=== PATIENT | male | born 1955 ===

== ENCOUNTER 2017-05-19 12:30 | Emergency (ER) | payer OTHER ==
[2017-05-19 12:40] VITALS: PULSE 88; RESP 16; TEMP 98; O2SAT 100
[2017-05-19] MEDS ORDERED: Acetaminophen-Codeine 300/30 mg Tab PO STA (13:35)
--- NOTE | 2017-05-19 13:40 | ED PDOC ---
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 Patient reports experiencing pain after he bent his knee while opening the back door of his truck at work. Rates the pain at 8/10. Denies any weakness or numbness to the area. Past Medical History Reviewed: Historical Data, Nursing Documentation, Vital Signs Vital Signs: Last Vital Signs Temp 98.0 F 05/19/17 12:37 Pulse 88 05/19/17 12:37 Resp 16 05/19/17 12:37 BP 199/98 H 05/19/17 12:37 Pulse Ox 100 05/19/17 12:37 - Medical History PMH: No Chronic Diseases - Surgical History Surgical History: No Surg Hx - Family History Family History: States: Unknown Family Hx - Social History Current smoker - smoking cessation education provided: No Alcohol: None Drugs: Denies - Allergies Allergies/Adverse Reactions: Allergies Allergy/AdvReac Type Severity Reaction Status Date / Time No Known Allergies Allergy Verified 05/19/17 12:37 Review of Systems ROS Statement: Except As Marked, All Systems Reviewed And Found Negative Musculoskeletal: Positive for: Leg Pain ((+) right knee pain ) Neurological: Negative for: Weakness, Numbness Physical Exam - Reviewed Nursing Documentation Reviewed: Yes Vital Signs Reviewed: Yes - Physical Exam Appears: Positive for: Non-toxic, No Acute Distress Head Exam: Positive for: ATRAUMATIC, NORMOCEPHALIC Skin: Positive for: Normal Color. Negative for: Rash Eye Exam: Positive for: Normal appearance Neck: Positive for: Normal Pulses-Dorsalis Pedis (L): 1+ Pulses-Dorsalis Pedis (R): 1+ Pulses-Post. Tibialis (L): 1+ Pulses-Post. Tibialis (R): 1+ Extremity: Positive for: Other (no ecchymosis ). Negative for: Normal ROM ( decreased flexion to left knee ), Tenderness (no bony tenderness or patella tenderness ), Deformity, Swelling Neurologic/Psych: Positive for: Alert, Oriented. Negative for: Motor/Sensory Deficits - ECG O2 Sat by Pulse Oximetry: 100 Medical Decision Making Medical Decision Makin:56 Initial Impression- 62 y/o male with left knee pain Initial Plan- * Acetaminophen/Codeine 1 tab PO * XR Left Knee x-ray normal. Documented by Eric Ang, acting as a scribe for Doreen King PA-C All medical record entries made by the Scribe were at my direction and personally dictated by me. I have reviewed the chart and agree that the record accurately reflects my personal performance of the history, physical exam, medical decision making, and the department course for this patient. I have also personally directed, reviewed, and agree with the discharge instructions and disposition. Disposition - Clinical Impression Clinical Impression: Knee pain - Patient ED Disposition Is Patient to be Admitted: No Counseled Patient/Family Regarding: Diagnosis, Need For Followup, Rx Given - Disposition Referrals: Rich Coats MD [Staff Provider] - Disposition Time: 14:33 Condition: GOOD Additional Instructions: Ice, elevation. Motrin for pain and inflammation. Tylenol #3 for severe pain. Instructions: Knee Pain (ED) Forms: [facility] (Slovak)
[2017-05-19] MEDS ORDERED: Acetaminophen-Codeine 300/30 mg Tab ONE (14:02)
--- NOTE | 2017-05-19 14:09 | RAD ---
PROCEDURE: Left Knee Radiographs. HISTORY: Pain. No history of recent/ related trauma provided COMPARISON: None. FINDINGS: BONES: Normal. No fracture. JOINTS: Normal. No osteoarthritis. JOINT EFFUSION: None. OTHER FINDINGS: None. IMPRESSION: No acute findings related to/accounting for the clinical presentation. No preliminary report provided by emergency department personnel.
[2017-05-19 14:42] VITALS: BP 150/91
== END 2017-05-19 14:41 | disposition home or self-care (01) ==
LOC: H.ER 12:30
DX: M25.562 Pain in left knee (principal)